=== PATIENT | male | born 1970 | race Caucasian/White ===

== ENCOUNTER → 2020-07-12 | Outpatient (CLI) | payer OTHER ==
[~2020-07-12] VITALS: Ht 238.8 cm; Wt 77.1 kg
[~2020-07-12] MED LIST: BUSPIRONE HCL10 MG PO; KLOR-CON 10 ER10 MEQ PO; LOVASTATIN 20 M20 MG PO; SULFASALAZINE500 M4 PO; TEMAZEPAM30 MG PO; TOPROL XL100 MG PO; VENLAFAXINE HCL75 M2 PO
--- NOTE | ~2020-07-12 | HPC ---
[facility] [address] [place] [address] PAIN MANAGEMENT CONSULTATION Name: CHRISTOFER SNOW Room #: REG ELBA Munoz.#: [id number] Admission: 07/12/20 Attend Phys: Lazaro Cruz MD Discharge: Date of : 66 Report #: [id number] THIS REPORT FOR: cc: AASHISH MARQUES Physician not on staff Lazaro Cruz MD ~ CC: Dr. Lily MARQUES Physician staff Lazaro Cruz DATE OF SERVICE: 07/12/2020 The patient is a 50-year-old who has a relatively new intrathecal pump. It is a [employer] device with a PTM allowing him to maximally use about 7.6 mg of morphine a day. He is here today for me to resume care of the pump with refill and adjustments going forward. He and his have recently moved to [place]. 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. 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 He has had longstanding pain dating back to 2007. At one point in time, he was on high doses of oxycodone. This was transitioned to the intrathecal pump and he has completely gotten off of all of his oral opioids, making it a very successful therapy. His pain relief has improved as well. He describes his pain that persist in his low back radiating down into his tailbone. It is worse with prolonged sitting and driving. He scores it as an average of 5, on a bad day it can be as high as a 7. He has had several back surgeries, the first in 2014. The second later that year and the third was a fusion in 2016. Pain continued to be bothersome. He was troubled also by osteoarthritis of the knee in early age and underwent a knee replacement in 2005 on the right and on the left in 2006. Orthopedic problem has also troubled with right shoulder surgery in 2001 and elbow surgery in 2005, both of which continue to provide some discomfort and pain. He is able to be quite active. Despite his disability, he and his just recently moved to a [place] acre farm where they have horses, goats, camel, and an emu. The exotic animals apparently at the request of his . He says he has been building a fence to keep these animals in. From what I know about emu and camel, it must be quite a large fence. He has had some increase in pain as a result of these heavy activities. MEDICATIONS: Sulfasalazine for his Crohn's disease, metoprolol, temazepam, venlafaxine, buspirone, lovastatin and one cap of potassium daily. [facility] [address] [place] [address] PAIN MANAGEMENT CONSULTATION Name: CHRISTOFER SNOW Room #: REG CLAngelique Rico#: [id number] Admission: 07/12/20 Attend Phys: Lazaro Cruz MD Discharge: Date of : 66 Report #: [id number] ALLERGIES: TORADOL. PAST MEDICAL HISTORY: Listed in the history of present illness. He also reports hypertension. Denies cardiovascular or pulmonary disease. No history of stroke or cancers. He denies any history of depression or anxiety. REVIEW OF SYSTEMS: Positive for fatigue, weakness and headaches, hearing loss; some dyspnea on exertion, mild; loss of appetite and nocturia. PHYSICAL EXAMINATION: He is a pleasant gentleman. Blood pressure 140/97, heart rate 67, respirations 14, O2 sat 100. Height 6 feet 2 inches, 170 pounds, BMI is less than 20 by calculation. He does not appear to be emaciated or thin. He moves independently from sitting to standing position. He ambulates without too much difficulty. His chest is clear. His cardiac rhythm is regular. His back reveals scars from previous surgery and knees as well. He has a pump placed in the right lower back. ____ it looks as though it would be uncomfortable. It is just above the iliac crest, but he does not complain of discomfort. Pump is not at an unusual angle or misplaced and it appears to be sitting nicely without swelling, redness, or inflammation. Interrogation of his intrathecal pump was performed. He has an infusion that is currently providing him with over 50% of his daily dose through PTM. Since he is using it quite routinely, my calculations is somewhere between 6-9 times a day of his 12 potential doses that it would be hernández to go ahead and increase his continuous rate to equal what he is already giving himself at least a portion of it. This will cut down on his daily activations and he will be troubled providing with repeated doses throughout the day. PROCEDURE: Reprogramming of intrathecal infusion pump. I reprogrammed the pump to provide an increase in baseline to 3.5 mg per day with a PTM dose of 0.4 mg up to 6 times a day. This will give him an extra 2 mg a day and will come close to what he has actually been giving himself of 5.8 mg of morphine per day. He has never given himself by my calculation, the full 7 mg allowed. When we reprogrammed the device and he reset with his new PTM device, the lockout interval seem to be listed as 6 hours. This is incorrect, that is not what we have on our ____ device. He will call us if there is a problem. The normal lockout is seen after dosing the first time and he should be able to get a dose the next time he attempts the pump. Followup visit is planned for a refill of his intrathecal pump before 08/08/2020. By: [id number] Lazaro Cruz MD /nt
[2020-07-12 13:36] VITALS: BP 140/97
--- NOTE | 2020-07-12 14:58 | NUR ---
Pain Clinic Assessment: 1. History of Osteoarthritis: knees back shoulders History of Rheumatoid Arthritis: na 2. Height: 6 ft. 22 in. 238.8 cm. Weight: 170.0 lb. oz. 77.112 kg. Patient's BMI: 13.5 3. Vital Signs: BP: 140/97 Pulse: 67 Resp: 14 Temp: 02 Sat: 100 ECG Mon: 4. Pain Intensity: 7 5. Fall Risk: Dizziness: N Needs help standing or walking: N Fallen in the last 3 months: N Fall risk comments: 6. Patient on Blood Thinner: None 7. History of Hypertension: Y 8. Opioid Therapy greater than 6 weeks: N Opiate Contract Signed: 9. Risk Assessment Tool Provided: 0-low risk 10. Functional Assessment Tool: 43 11. Recreational Drug Use: Never Drug Type: Tobacco Use: Current Every Day Smoker Tobacco Type: Chewing Tobacco Amount or Packs/day: can/day How Many Years: 40 Alcohol Use: Past use Frequency: Quant:
== END ==
LOC: PAIN 07:10
PROVIDERS: ATTEND Anesthesiology Pain Medicine
DX: Z45.1 Encounter for adjustment and management of infusion pump (principal); Z79.899 Other long term (current) drug therapy

== ENCOUNTER → 2020-08-09 | Outpatient (CLI) | payer OTHER ==
[~2020-08-09] VITALS: Ht 188 cm; Wt 73.6 kg
--- NOTE | ~2020-08-09 | HPC ---
[facility] [place] [address] [place] [address] PAIN MANAGEMENT CONSULTATION Name: CHRISTOFER SNOW Room #: REG ELBA Munoz.#: [id number] Admission: 08/09/20 Attend Phys: Lazaro Cruz MD Discharge: Date of : 66 Report #: [id number] THIS REPORT FOR: cc: AASHISH MARQUES Physician not on staff Lazaro Cruz MD ~ CC: Dr. Aashish MARQUES Physician staff Lazaro Cruz DATE OF SERVICE: 08/09/2020 Followup visit to refill intrathecal infusion pump. The patient is returning to clinic today for his first pump refill. He has intrathecal morphine infusing at a rate of 3.5 mg continuous with a PTM bolus, which will allow him to increase his dose by about 65%. He has been using the boluses, but fewer with increase in basal that I provided at his last office visit. There have been no significant changes in his history. He remains very active and is grateful for the pain relief that he receives from his pump and the ability to avoid taking any oral opioids. His doctor provided him with temazepam and high dose alprazolam at 2 mg 3 times daily. I will not provide those medications to him, but we will manage only his pump. 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 PQRS REVIEW: Positive for osteoarthritis of the knees, back and shoulders. BMI is 20.8, blood pressure 146/98, heart rate 80, respirations 14, O2 sat 100, pain intensity 7. Not a fall risk. He is on no blood thinners. He says he is treated for hypertension and we reviewed his medicines. I do not prescribe the ____, find a primary care physician in the city for his metoprolol. His opioid risk assessment tool is 0. He takes no oral opioids. Functional assessment score is 43/70. Continues to smoke cigarettes. Denies alcohol, but has history of previous use. PHYSICAL EXAMINATION: Fit appearing young gentleman. VITAL SIGNS: As noted. I stressed the importance of seeing a physician for his hypertension. Walks independently. CHEST: Clear. CARDIAC: Rhythm is regular. BACK: Reveals scars from previous surgery and tenderness. Pump is in an odd place just over his iliac crest in the right hip. No swelling, inflammation or redness. [facility] [address] [place] [address] PAIN MANAGEMENT CONSULTATION Name: CHRISTOFER SNOW Room #: REG CLAngelique Trisha#: [id number] Admission: 08/09/20 Attend Phys: Lazaro Cruz MD Discharge: Date of : 66 Report #: [id number] IMPRESSION: 1. Chronic intractable back pain, post-laminectomy syndrome. 2. Intrathecal pump for management. PROCEDURE: Skin was prepped with ChloraPrep. Skin was anesthetized and a 22-gauge non-coring needle advanced into the intrathecal pump. Old medication removed and discarded per protocol. Pump refilled with morphine 10 mg per mL and reprogramming session performed with no changes. Information was checked per our protocol by 2 people and initial copy given to the patient. His next refill will be scheduled before 10/10/2020. By: [id number] Lazaro Cruz MD /nt
[2020-08-09 13:27] VITALS: BP 146/98
--- NOTE | 2020-08-09 13:42 | NUR ---
Pain Clinic Assessment: 1. History of Osteoarthritis: knees back shoulders History of Rheumatoid Arthritis: na 2. Height: 6 ft. 2 in. 188.0 cm. Weight: 162.2 lb. oz. 73.573 kg. Patient's BMI: 20.8 3. Vital Signs: BP: 146/98 Pulse: 80 Resp: 14 Temp: 02 Sat: 100 ECG Mon: 4. Pain Intensity: 7 5. Fall Risk: Dizziness: N Needs help standing or walking: N Fallen in the last 3 months: N Fall risk comments: 6. Patient on Blood Thinner: None 7. History of Hypertension: Y 8. Opioid Therapy greater than 6 weeks: N Opiate Contract Signed: 9. Risk Assessment Tool Provided: 0-low risk 10. Functional Assessment Tool: 43 11. Recreational Drug Use: Never Drug Type: Tobacco Use: Current Every Day Smoker Tobacco Type: Amount or Packs/day: How Many Years: Alcohol Use: Past use Frequency: Quant:
== END | disposition home or self-care (01) ==
LOC: PAIN 07:01
PROVIDERS: ATTEND Anesthesiology Pain Medicine
DX: Z45.1 Encounter for adjustment and management of infusion pump (principal); G89.29 Other chronic pain; M54.9 Dorsalgia, unspecified; M96.1 Postlaminectomy syndrome, not elsewhere classified; I10 Essential (primary) hypertension; M19.90 Unspecified osteoarthritis, unspecified site; F17.210 Nicotine dependence, cigarettes, uncomplicated; Z98.890 Other specified postprocedural states; Z79.899 Other long term (current) drug therapy; Z79.891 Long term (current) use of opiate analgesic; Z88.8 Allergy status to other drugs, medicaments and biological substances

== ENCOUNTER → 2020-10-18 | Outpatient (CLI) | payer OTHER ==
[~2020-10-18] VITALS: Ht 188 cm; Wt 72.0 kg
[2020-10-18 14:04] VITALS: BP 162/99
--- NOTE | 2020-10-18 14:25 | NUR ---
Pain Clinic Assessment: 1. History of Osteoarthritis: knees back shoulders History of Rheumatoid Arthritis: na 2. Height: 6 ft. 2 in. 188.0 cm. Weight: 158.8 lb. oz. 72.031 kg. Patient's BMI: 20.4 3. Vital Signs: BP: 162/99 Pulse: 86 Resp: 14 Temp: 02 Sat: 100 ECG Mon: 4. Pain Intensity: 2 5. Fall Risk: Dizziness: N Needs help standing or walking: N Fallen in the last 3 months: N Fall risk comments: 6. Patient on Blood Thinner: None 7. History of Hypertension: Y 8. Opioid Therapy greater than 6 weeks: N Opiate Contract Signed: 9. Risk Assessment Tool Provided: 0-low risk 10. Functional Assessment Tool: 43 11. Recreational Drug Use: Never Drug Type: Tobacco Use: Current Every Day Smoker Tobacco Type: Amount or Packs/day: How Many Years: Alcohol Use: Past use Frequency: Quant:
== END | disposition home or self-care (01) ==
LOC: PAIN 06:53
PROVIDERS: ATTEND Anesthesiology Pain Medicine
DX: Z45.1 Encounter for adjustment and management of infusion pump (principal); M96.1 Postlaminectomy syndrome, not elsewhere classified; G89.29 Other chronic pain; I10 Essential (primary) hypertension; F17.210 Nicotine dependence, cigarettes, uncomplicated; M19.90 Unspecified osteoarthritis, unspecified site; Z98.890 Other specified postprocedural states; Z79.899 Other long term (current) drug therapy; Z88.8 Allergy status to other drugs, medicaments and biological substances

== ENCOUNTER → 2021-01-06 | Outpatient (CLI) | payer OTHER ==
[~2021-01-06] VITALS: Ht 188 cm; Wt 74.2 kg
[~2021-01-06] MED LIST changes: +FLUOXETINE HCL60 MG PO; +IBUPROFEN 800800 M1 PO; +KLOR-CON M2020 MEQ PO; +LISINOPRIL20 MG PO; +SUMATRIPTAN PO; +TOPAMAX100 MG PO
[2021-01-06 13:01] VITALS: BP 162/101
--- NOTE | 2021-01-06 13:45 | NUR ---
Pain Clinic Assessment: 1. History of Osteoarthritis: knees back shoulders LOW BACK History of Rheumatoid Arthritis: na 2. Height: 6 ft. 2 in. 188.0 cm. Weight: 163.6 lb. oz. 74.208 kg. Patient's BMI: 21.0 3. Vital Signs: BP: 162/101 Pulse: 62 Resp: 14 Temp: 02 Sat: 97 ECG Mon: 4. Pain Intensity: 7-8 5. Fall Risk: Dizziness: N Needs help standing or walking: N Fallen in the last 3 months: N Fall risk comments: 6. Patient on Blood Thinner: None 7. History of Hypertension: Y 8. Opioid Therapy greater than 6 weeks: N Opiate Contract Signed: 9. Risk Assessment Tool Provided: 0-low risk 10. Functional Assessment Tool: 43/ 11. Recreational Drug Use: Never Drug Type: Tobacco Use: Never Smoker Tobacco Type: Amount or Packs/day: How Many Years: Alcohol Use: Past use Frequency: Quant:
== END | disposition home or self-care (01) ==
LOC: PAIN 06:57
PROVIDERS: ATTEND Anesthesiology Pain Medicine
DX: Z45.1 Encounter for adjustment and management of infusion pump (principal); G89.29 Other chronic pain; M96.1 Postlaminectomy syndrome, not elsewhere classified; M54.9 Dorsalgia, unspecified; I10 Essential (primary) hypertension; M19.90 Unspecified osteoarthritis, unspecified site; Z98.890 Other specified postprocedural states; Z79.899 Other long term (current) drug therapy; Z79.891 Long term (current) use of opiate analgesic; Z88.8 Allergy status to other drugs, medicaments and biological substances

== ENCOUNTER → 2021-01-13 | Outpatient (CLI) | payer OTHER ==
[~2021-01-13] VITALS: Ht 188 cm; Wt 74.5 kg
[~2021-01-13] MED LIST changes: +OXYCODONE-APAP1 EAC4 PO; +SUMATRIPTAN-NA1 EACH PO
[2021-01-13 13:27] VITALS: BP 168/102
--- NOTE | 2021-01-13 13:51 | NUR ---
Pain Clinic Assessment: 1. History of Osteoarthritis: knees back shoulders LOW BACK History of Rheumatoid Arthritis: na 2. Height: 6 ft. 2 in. 188.0 cm. Weight: 164.2 lb. oz. 74.481 kg. Patient's BMI: 21.1 3. Vital Signs: BP: 168/102 Pulse: 57 Resp: 16 Temp: 02 Sat: 98 ECG Mon: 4. Pain Intensity: 7 5. Fall Risk: Dizziness: N Needs help standing or walking: N Fallen in the last 3 months: N Fall risk comments: 6. Patient on Blood Thinner: None 7. History of Hypertension: Y 8. Opioid Therapy greater than 6 weeks: N Opiate Contract Signed: 9. Risk Assessment Tool Provided: 0-low risk 10. Functional Assessment Tool: 55/70 11. Recreational Drug Use: Never Drug Type: Tobacco Use: Never Smoker Tobacco Type: Amount or Packs/day: How Many Years: Alcohol Use: Yes Frequency: Special Occasions Quant: 2/drinks occasionally
== END | disposition home or self-care (01) ==
LOC: PAIN 01-10 07:13
PROVIDERS: ATTEND Anesthesiology Pain Medicine
DX: T85.690A Other mechanical complication of cranial or spinal infusion catheter, initial encounter (principal); M96.1 Postlaminectomy syndrome, not elsewhere classified; M54.5 Low back pain; G89.29 Other chronic pain; Z98.890 Other specified postprocedural states; Z79.899 Other long term (current) drug therapy; Z88.8 Allergy status to other drugs, medicaments and biological substances; Y83.8 Other surgical procedures as the cause of abnormal reaction of the patient, or of later complication, without mention of misadventure at the time of the procedure

== ENCOUNTER → 2021-02-03 | Outpatient (CLI) | payer OTHER ==
[~2021-02-03] VITALS: Ht 188 cm; Wt 77.9 kg
[2021-02-03 14:05] VITALS: BP 120/76
--- NOTE | 2021-02-03 14:20 | NUR ---
Pain Clinic Assessment: 1. History of Osteoarthritis: knees back shoulders LOW BACK History of Rheumatoid Arthritis: na 2. Height: 6 ft. 2 in. 188.0 cm. Weight: 171.8 lb. oz. 77.928 kg. Patient's BMI: 22.0 3. Vital Signs: BP: 120/76 Pulse: 75 Resp: 14 Temp: 02 Sat: 100 ECG Mon: 4. Pain Intensity: 7 5. Fall Risk: Dizziness: Y Needs help standing or walking: N Fallen in the last 3 months: N Fall risk comments: 6. Patient on Blood Thinner: None 7. History of Hypertension: Y 8. Opioid Therapy greater than 6 weeks: N Opiate Contract Signed: 9. Risk Assessment Tool Provided: 0-low risk 10. Functional Assessment Tool: 55/70 11. Recreational Drug Use: Never Drug Type: Tobacco Use: Never Smoker Tobacco Type: Amount or Packs/day: How Many Years: Alcohol Use: No Frequency: Quant:
--- NOTE | 2021-02-04 09:07 | HPC ---
[facility] [address] [address] PAIN MANAGEMENT CONSULTATION Name: CHRISTOFER SNOW Room #: REG Angelique Rico#: [id number] Admission: 02/03/21 Attend Phys: Jazmin Awad Discharge: Date of : 66 Report #: [id number] THIS REPORT FOR: cc: AASHISH MARQUES Physician not on staff Jazmin Awad ~ DATE OF SERVICE: 02/03/2021 CHIEF COMPLAINT: Chronic back pain, status post laminectomy, recent intrathecal pump replacement. HISTORY OF PRESENT ILLNESS: This is a 50-year-old gentleman who returns to the pain clinic today for an adjustment of his intrathecal pump. In December, it was determined that his pump was malfunctioning. We decreased his rate and he was scheduled for surgery with Dr. Valente. The patient reports he had surgery on 01/28/2021. Unfortunately, I do not have the operative report from the physician at this time. The patient elected to have his intrathecal pump moved from his back to his right abdomen and is here today requesting an increase in his intrathecal pump of his morphine. The patient is reporting a pain score today is 7/10. Most of his pain, he refers to as surgical pain, though he is having low back pain and a slight headache today. He also has ongoing knee issues. His pain is usually exacerbated by working in the yard with his animals, also prolonged driving or sitting. He does state that his pain was controlled with his intrathecal pump prior to the malfunctioning. He is wearing a binder today that is also helping with some of his discomfort. ALLERGIES: TORADOL. CURRENT LIST OF MEDICATIONS: Sumatriptan/naproxen, fluoxetine, ibuprofen, potassium, lisinopril, Topamax, buspirone, temazepam, metoprolol, and sulfasalazine. PQRS: 1. He has osteoarthritic changes in his knees, shoulder and back. Denies rheumatoid arthritis. 2. Height is 6 feet 2 inches, weight is 171, BMI is 22. 3. Vital signs 122/76, pulse is 75, respirations 14, oxygen sat is 100, pain score 7/10. 4. Fall risk, complains of slight dizziness, does not need assistance with ambulation, has not fallen in the last 3 months. The patient is not on any blood thinners, but does take medicine for hypertension. His opioid therapy is greater than 6 weeks. Risk assessment is low. Functional assessment is 55/70. 5. Recreational drug use, he denies. He is not a smoker and [place] [address] PAIN MANAGEMENT CONSULTATION Name: CHRISTOFER SNOW Room #: REG ELBA Rico#: [id number] Admission: 02/03/21 Attend Phys: Jazmin Awad Discharge: Date of : 66 Report #: [id number] According to the prescription monitoring system, he did recently fill some medications from Dr. Cruz in December for his malfunctioning pump, so he did not go through further withdrawal. No further opioids since that time. PHYSICAL EXAMINATION: GENERAL: This is alert and orientated, very pleasant 50-year-old gentleman who appears his stated age, placing his current pain score today at 7/10. HEENT: Normocephalic, atraumatic. Extraocular eye muscles are intact. Mucous membranes are moist. He is wearing a mask. ABDOMEN: He has an abdominal binder on. MUSCULOSKELETAL: He has a clean, dry, intact dressing over his right lower quadrant. His incision site is slightly swollen today. Back incisions are clean, dry and intact with sutures intact. No drainage. There are dressings over them. Tenderness in his lumbosacral region that does radiate into his legs bilaterally. IMPRESSION: 1. Post-laminectomy syndrome, failed back. 2. Chronic pain. 3. Intrathecal infusion pump, recently replaced. PLAN: 1. We discussed treatment options with the patient today. The plan is to slowly increase his intrathecal pump. Today his pump was adjusted to 1.001 mg of intrathecal morphine per day. We did reinitiate his PTM as well, allowing him morphine 0.15 mg 4 times a day with a maximum of four in 24 hours. The patient has his PTM at home and will activate this. His new alarm date is 09/18/2021. The patient will return next week for further adjustment in his intrathecal pump. 2. The patient is not provided any oral pain medications today. 3. Dr. Lazaro Cruz did see the patient and examined him as well today and collaborated care. Time spent with the patient in consultation, reviewing imaging, reviewing chart notes and physical exam and correlation of physical findings of medical documentation to determine treatments of 13 minutes. Time spent in preparation for appointment, reviewing prescription monitoring system report, reviewing previous records and treatment options, and current medications of 5 minutes. Time spent in programming his intrathecal pump and documentation of the visit and plan of treatment with collaborating physician, Dr. Cruz, 8 minutes. Total time spent 26 minutes. <ELECTRONICALLY SIGNED> By: Jazmin Awad 02/04/21 [id number] Jazmin Awad /nt
== END | disposition home or self-care (01) ==
LOC: PAIN 06:51
PROVIDERS: ATTEND Clinical Nurse Specialist Adult Health
DX: Z45.1 Encounter for adjustment and management of infusion pump (principal); G89.29 Other chronic pain; M96.1 Postlaminectomy syndrome, not elsewhere classified; I10 Essential (primary) hypertension; M19.90 Unspecified osteoarthritis, unspecified site; Z98.890 Other specified postprocedural states; Z79.899 Other long term (current) drug therapy; Z79.891 Long term (current) use of opiate analgesic

== ENCOUNTER → 2021-02-10 | Outpatient (CLI) | payer OTHER ==
[~2021-02-10] VITALS: Ht 188 cm; Wt 82.5 kg
[2021-02-10 13:06] VITALS: BP 131/86
--- NOTE | 2021-02-10 13:14 | NUR ---
Pain Clinic Assessment: 1. History of Osteoarthritis: knees back shoulders LOW BACK History of Rheumatoid Arthritis: na 2. Height: 6 ft. 2 in. 188.0 cm. Weight: 181.8 lb. oz. 82.464 kg. Patient's BMI: 23.3 3. Vital Signs: BP: 131/86 Pulse: 75 Resp: 14 Temp: 02 Sat: 97 ECG Mon: 4. Pain Intensity: 5-6 5. Fall Risk: Dizziness: N Needs help standing or walking: N Fallen in the last 3 months: N Fall risk comments: 6. Patient on Blood Thinner: None 7. History of Hypertension: Y 8. Opioid Therapy greater than 6 weeks: N Opiate Contract Signed: 9. Risk Assessment Tool Provided: 0-low risk 10. Functional Assessment Tool: 55/70 11. Recreational Drug Use: Never Drug Type: Tobacco Use: Never Smoker Tobacco Type: Amount or Packs/day: How Many Years: Alcohol Use: No Frequency: Quant:
== END | disposition home or self-care (01) ==
LOC: PAIN 06:47
PROVIDERS: ATTEND Clinical Nurse Specialist Adult Health
DX: G89.29 Other chronic pain (principal); M96.1 Postlaminectomy syndrome, not elsewhere classified; Z79.899 Other long term (current) drug therapy

== ENCOUNTER → 2021-02-17 | Outpatient (CLI) | payer OTHER ==
[~2021-02-17] VITALS: Ht 188 cm; Wt 80.1 kg
[2021-02-17 13:21] VITALS: BP 116/72
--- NOTE | 2021-02-17 14:08 | NUR ---
Pain Clinic Assessment: 1. History of Osteoarthritis: knees back shoulders LOW BACK History of Rheumatoid Arthritis: na 2. Height: 6 ft. 2 in. 188.0 cm. Weight: 176.6 lb. oz. 80.105 kg. Patient's BMI: 22.7 3. Vital Signs: BP: 116/72 Pulse: 55 Resp: 16 Temp: 02 Sat: 98 ECG Mon: 4. Pain Intensity: 6 5. Fall Risk: Dizziness: N Needs help standing or walking: N Fallen in the last 3 months: N Fall risk comments: 6. Patient on Blood Thinner: None 7. History of Hypertension: Y 8. Opioid Therapy greater than 6 weeks: N Opiate Contract Signed: 9. Risk Assessment Tool Provided: 0-low risk 10. Functional Assessment Tool: 55/70 11. Recreational Drug Use: Never Drug Type: Tobacco Use: Never Smoker Tobacco Type: Amount or Packs/day: How Many Years: Alcohol Use: No Frequency: Quant:
== END | disposition home or self-care (01) ==
LOC: PAIN 06:54
PROVIDERS: ATTEND Clinical Nurse Specialist Adult Health
DX: Z45.1 Encounter for adjustment and management of infusion pump (principal); G89.29 Other chronic pain; M96.1 Postlaminectomy syndrome, not elsewhere classified; I10 Essential (primary) hypertension; M19.90 Unspecified osteoarthritis, unspecified site; Z98.890 Other specified postprocedural states; Z79.899 Other long term (current) drug therapy; Z88.8 Allergy status to other drugs, medicaments and biological substances; Z20.822 Contact with and (suspected) exposure to COVID-19

== ENCOUNTER → 2021-02-24 | Outpatient (CLI) | payer OTHER ==
[~2021-02-24] VITALS: Ht 188 cm; Wt 82.6 kg
[2021-02-24 13:47] VITALS: BP 106/68
--- NOTE | 2021-02-24 13:58 | NUR ---
Pain Clinic Assessment: 1. History of Osteoarthritis: knees back shoulders LOW BACK History of Rheumatoid Arthritis: na 2. Height: 6 ft. 2 in. 188.0 cm. Weight: 182.2 lb. oz. 82.645 kg. Patient's BMI: 23.4 3. Vital Signs: BP: 106/68 Pulse: 67 Resp: 16 Temp: 02 Sat: 98 ECG Mon: 4. Pain Intensity: 4 5. Fall Risk: Dizziness: N Needs help standing or walking: N Fallen in the last 3 months: N Fall risk comments: 6. Patient on Blood Thinner: None 7. History of Hypertension: Y 8. Opioid Therapy greater than 6 weeks: N Opiate Contract Signed: 9. Risk Assessment Tool Provided: 0-low risk 10. Functional Assessment Tool: 55/70 11. Recreational Drug Use: Never Drug Type: Tobacco Use: Never Smoker Tobacco Type: Amount or Packs/day: How Many Years: Alcohol Use: No Frequency: Quant:
== END | disposition home or self-care (01) ==
LOC: PAIN 07:01
PROVIDERS: ATTEND Anesthesiology Pain Medicine
DX: Z45.1 Encounter for adjustment and management of infusion pump (principal); M54.5 Low back pain; M96.1 Postlaminectomy syndrome, not elsewhere classified; G89.29 Other chronic pain; Z98.890 Other specified postprocedural states; Z79.899 Other long term (current) drug therapy